=== PATIENT | female | born 1945 | race Caucasian/White ===

== ENCOUNTER 2016-06-29 15:10 | Observation (INO) | payer MEDICARE, OTHER ==
[~2016-06-29] VITALS: Ht 154.9 cm; Wt 75.9 kg
[2016-07-03] MEDS ORDERED: POTA99TA PO (13:28)
[2016-07-03] MEDS ORDERED: MAGN500T4 PO (13:28)
[2016-07-03] MEDS ORDERED: VITA200013 (13:28)
[2016-07-03] MEDS ORDERED: METF1000 PO (13:28)
[2016-07-03] MEDS ORDERED: SYMB80AE INH (13:28)
[2016-07-03] MEDS ORDERED: GABA600T PO (13:28)
[2016-07-03] MEDS ORDERED: ROSU10 PO (13:28)
[2016-07-03] MEDS ORDERED: VALS80TA2 PO (13:28)
[2016-07-03] MEDS ORDERED: COQ-100C2 PO (13:28)
[2016-07-03] MEDS ORDERED: LANTUS2P SQ (13:28)
[2016-07-03] MEDS ORDERED: ALBUAER3 INH (13:28)
[2016-07-03] MEDS ORDERED: MONT10TA2 PO (13:28)
[2016-07-03] MEDS ORDERED: MORP1TAB24 PO (13:28)
[2016-07-03] MEDS ORDERED: DIAZ5TAB PO (13:28)
[2016-07-03] MEDS ORDERED: NOVOLOGP2 SQ (13:28)
[2016-07-19] MEDS ORDERED: CHLORHEXIDINE GLUCONATE 4% SOLN 120 ML BTL TOPICAL SCH (06:45)
[2016-07-19] MEDS ORDERED: ceFAZolin 2 GM PREMIX 50 ML IV SCH (06:45)
[2016-07-19] MEDS ORDERED: VANCOMYCIN 1000 MG/NS 250 ML (for <70 kg) IV SCH ×2 (06:45)
[2016-07-19] MEDS ORDERED: DEXTROSE 50% IN WATER 50 ML SYRINGE ONE (06:56)
[2016-07-19] MEDS ORDERED: SODIUM CHLORID 0.9% 500 ML IV PRN (07:00)
[2016-07-19] MEDS ORDERED: DEXTROSE 50% IN WATER 50 ML VIAL(D50) IV ONE (07:00)
[2016-07-19] MEDS ORDERED: POVIDONE IODINE 5% (ANTISEPSIS KIT) 4 APPLICATIONS EACH NARE PRN (07:00)
[2016-07-19] MEDS ORDERED: LACTATED RINGER'S 1000 ML IV PRN (07:00)
[2016-07-19] MEDS ORDERED: INSULIN HUMAN REGULAR 1,000 UNITS/10 ML VIAL SQ PRN (07:00)
[2016-07-19] MEDS ORDERED: CHLORHEXIDINE GLUCONATE 2 % 1 PACK (2 CLOTHS) TOPICAL PRN (07:00)
[2016-07-19] MEDS ORDERED: METOPROLOL TARTRATE 25 MG TAB PO PRN (07:00)
[2016-07-19] MEDS ORDERED: BUPIVACAINE/EPINEPHRINE 0.5% PF 30 ML VIAL ONE (07:15)
[2016-07-19] MEDS ORDERED: GENTAMICIN SULFATE 80 MG/2 ML VIAL ONE (07:15)
[2016-07-19] MEDS ORDERED: UBID200C3 PO (07:27)
[2016-07-19] MEDS ORDERED: ESSE250T PO (07:27)
[2016-07-19 07:30] VITALS: BP 152/72; PULSE 67; RESP 22; TEMP 98.9; O2SAT 97
[2016-07-19] MEDS ORDERED: FAMOTIDINE 20 MG/2 ML VIAL ONE (08:19)
[2016-07-19] MEDS ORDERED: ACETAMINOPHEN 1000 MG/100 ML VIAL IV ONE (08:26)
[2016-07-19] MEDS ORDERED: ALBUTEROL SULFATE 90 MCG/ACT HFA 18 GM INHALER INH PRN (12:15)
[2016-07-19] MEDS ORDERED: DIAZEPAM 5 MG TAB PO PRN (12:15)
--- NOTE | 2016-07-19 12:29 | HHI.PR ---
Immediate Post Op Note Procedure Date: Jul 19, 2016 Pre Op Diagnosis: C4-C6 ODC SS,SCC,DD,OA,James Cervical Radiculitis Post Op Diagnosis: Same Surgeon: Jacques Villarreal MD Medical Language Specialist(s): Geneva Villalobos PA-C Procedure: C4-5,C5-6 AIF,ACC,ASI Complications: None Estimated blood loss: 150 cc for entire case Anesthesia: General Drains: None Patient to: PACU Patient Condition: Good Implant/Devices: SEE IMPLANT LOG (if applicable) Date/Time of Procedure: SEE SURGICAL CARE RECORD Jacques Villarreal MD Jul 19, 2016 12:29
[2016-07-19] MEDS ORDERED: Post-op Orders (for Pharmacy) MISC XX ONE (12:30)
[2016-07-19] MEDS ORDERED: DO NOT ADM ANY ANTICOAGULANT DRUGS PRN (12:30)
[2016-07-19] MEDS ORDERED: NALOXONE HCL 0.4 MG/ML AMP IV PRN (12:30)
[2016-07-19] MEDS ORDERED: ACETAMINOPHEN/HYDROcodone 325 MG/7.5 MG TAB PO PRN (12:30)
[2016-07-19] MEDS ORDERED: ONDANSETRON HCL 4 MG/2 ML VIAL IV PRN (12:30)
[2016-07-19] MEDS ORDERED: ALUMINUM/MAGNESIUM/SIMETH 30 ML CUP PO PRN (12:30)
[2016-07-19] MEDS ORDERED: SODIUM CHLORIDE 0.9% FLUSH 5 ML FLUSH IVF PRN (12:30)
[2016-07-19] MEDS ORDERED: fentaNYL CITRATE 250 MCG/5 ML AMP ONE (12:39)
[2016-07-19] MEDS ORDERED: MIDAZOLAM HCL 2 MG/2 ML VIAL ONE (12:40)
--- NOTE | 2016-07-19 12:41 | PD.OP ---
cc: Jacques Villarreal MD; Dmitri Villarreal MD Operative Report Osteophyte disc complex C4 5 and C5 6. Cervical spinal stenosis. Cervical radiculopathy Postoperative Diagnosis: Same Procedure: Anterior cervical discectomy with decompression and bilateral foraminotomies, C4 5. Anterior cervical discectomy and decompression with bilateral foraminotomy, C5 6. Left anterior iliac crest bone graft Anesthesia: Gen. Surgeon: Dmitri Villarreal Medical Liaison(s): JOSE Thompson Operation and Findings: EBL: 100 cc INDICATIONS: This patient is a 71-year-old female with significant left arm pain with weakness. Studies show evidence of a high-grade stenosis at C4 5 and C5 6. Discogenic changes are seen. Foraminal stenosis is noted. This patient presents for surgical treatment. NOTE: Alison Thompson PA-C was present for the entire surgical procedure as my assistant professor of psychology. In my medical opinion her skill and care was necessary for proper management of this patient PROCEDURE: The patient was brought to the operating room and anesthetized in the supine position. This patient was positioned supine on the radiolucent table. All pressure points were protected in the anterior cervical spine and iliac crest was scrubbed with alcohol followed by Hibiclens followed by ChloraPrep. A timeout was done and antibiotics were given within 1 hour time window. Lateral radiographic images were used identifying the proper level. A right anterior incision was made in line with skin creases. The platysma was opened in line with the incision. Deep dissection continued in the interval between the carotid sheath and the esophagus. The longus-coli muscles were lifted on both sides and retractors were positioned allowing good exposure. Lateral radiographic images were used to identify the proper level. [place] style interosseous pins were placed at C4 and C5 allowing exposure to that level. The microscope was rolled into the field. A total discectomy was accomplished and posterior osteophytes were removed. The posterior longitudinal ligament and annulus was taken down. Bilateral foraminotomies were accomplished. The endplates were squared up anticipating later bone grafting. A blunt probe could be placed out each foramen without evidence of nerve root compromise. The C4 pin was placed down to C6. An anterior exposure was accomplished. We performed a total discectomy with excision of the posterior annulus and posterior longitudinal ligament. Bilateral foraminotomies were accomplished. Osteophytes were removed. The endplates were squared up anticipating later bone grafting. A blunt probe could be placed out each foramen without evidence of nerve root compromise. The left iliac crest was approached. A small stab incision was made allowing percutaneous access to the anterior iliac crest. Multiple cores of cancellous bone were harvested and taken to the back table to be used for later bone grafting. The wound was irrigated anesthetized and closed with 4-0 Vicryl followed by Dermabond. The case was turned over to Dr. Jacques Villarreal for fusion and instrumentation per his dictation. FINDINGS: There was a high-grade central and foraminal stenosis seen at both levels. 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 Some element of soft disc herniation on top of that was seen at both levels centrally. No complication was noted. NOTE: This surgery was performed in 2 parts. The first part was the neurosurgical decompression performed under the variable power stereo microscope by the undersigned in addition to the bone graft. The second portion of the surgery will be performed by the orthopedic spine component by co -surgeon, Dr. Jacques Villarreal for the anterior fusion with interbody cage and anterior plate. The skill of 2 surgeons was necessary to perform distinct separate procedural services as dictated above and dictated in the following operative note by Dr. Jacques Villarreal. Dmitri Villarreal MD Jul 19, 2016 12:41
[2016-07-19] MEDS ORDERED: *morphine SULFATE 8 MG/ML PERIprocedure ONLY ONE ×2 (12:47→13:06)
[2016-07-19] MEDS: INSULIN ASPART 1,000 UNITS/10 ML VIAL SQ SCH ×3 (13:00→21:30)
[2016-07-19] MEDS ORDERED: *HYDROmorphone PF 1 MG VIAL PERIprocedural Use ONLY ONE (13:27)
[2016-07-19] MEDS: LACTATED RINGER'S 1000 ML INJ 1,000 ML IV SCH (13:30)
[2016-07-19 14:00] VITALS: BP 112/60; PULSE 66; RESP 18; TEMP 96.2; O2SAT 100
[2016-07-19] MEDS ORDERED: MORPHINE SULFATE 15 MG CONTROLLED RELEASE TAB PO SCH ×2 (14:00→21:00)
[2016-07-19] MEDS: GABAPENTIN 300 MG CAP PO SCH ×2 (14:18→18:32)
[2016-07-19] MEDS ORDERED: ePHEDrine/NS 25 MG/5 ML SYR IV ONE (14:47)
[2016-07-19] MEDS ORDERED: ONDANSETRON HCL 4 MG/2 ML VIAL IV PUSH ONE (14:47)
[2016-07-19] MEDS ORDERED: NEOSTIGMINE 3 MG/3 ML SYR IV ONE (14:47)
[2016-07-19] MEDS ORDERED: PROPOFOL 200 MG/20 ML AMP IV ONE (14:47)
[2016-07-19] MEDS ORDERED: LACTATED RINGER'S 1000 ML INJ 1,000 ML IV ONE (14:48)
[2016-07-19] MEDS ORDERED: RESP: ALBUTEROL 2.5 MG/IPRATROPIUM 0.5 MG NEB (PRN) NEB (15:00)
[2016-07-19] MEDS ORDERED: DEXTROSE 50% IN WATER 50 ML VIAL(D50) IV PRN (15:00)
[2016-07-19] MEDS ORDERED: GLUCAGON 1 MG/ML VIAL OTHER PRN (15:00)
--- NOTE | 2016-07-19 15:07 | PD.CONS ---
HPI Service [facility] Consult Requested By Orthopedic surgery Reason for Consult Medical management Primary Care Physician Gavin Mcqueen Diagnoses: History of Present Illness 71-year-old female with a history of diabetes type 2, hypertension, hyperlipidemia and diagnosis of high-grade stenosis at C4-5 and C5-6 causing significant left arm pain with weakness and neck pain times several years duration was taken to the OR today and underwent ACDF by orthopedic surgery. [facility] was consulted for medical management. Patient was seen and complains of weakness to her right arm otherwise stable she denies any chest pain or shortness of breath. Review of Systems Except as stated in HPI: all other systems reviewed are Neg Past Family Social History Allergies: Coded Allergies: Codeine (Verified Adverse Reaction, Severe, VOMITING, 07/19/16) causes swelling,itching and hives Past Medical History Diabetes type 2 Hypertension Hyperlipidemia COPD Anxiety Past Surgical History Status post ACDF Back surgery Total Abdominal hysterectomy Right knee replacement Reported Medications See EMR Family History Noncontributory Social History Patient denies tobacco, alcohol or easy drug intake Physical Exam Vital Signs Vital Signs Date Time Temp Pulse Resp B/P Pulse Ox O2 Delivery O2 Flow Rate FiO2 07/19/16 14:00 96.2 66 18 112/60 100 07/19/16 13:45 97.5 70 16 124/55 98 Nasal Cannula 3 07/19/16 13:30 71 16 125/56 97 Nasal Cannula 3 07/19/16 13:15 72 15 117/57 96 Nasal Cannula 3 07/19/16 13:11 15 07/19/16 13:00 77 15 141/70 95 Nasal Cannula 3 07/19/16 12:52 15 07/19/16 12:45 82 14 133/73 99 Simple Mask 8 07/19/16 12:30 97.5 98 15 155/76 96 Simple Mask 8 07/19/16 07:30 98.9 67 22 152/72 97 Physical Exam GENERAL: This is a well-nourished, well-developed patient, in no apparent distress. SKIN: No rashes, ecchymoses or lesions. Cool and dry. HEAD: Atraumatic. Normocephalic. No temporal or scalp tenderness. EYES: Pupils equal round and reactive. Extraocular motions intact. No scleral icterus. No injection or drainage. ENT: Nose without bleeding, purulent drainage or septal hematoma. Throat without erythema, tonsillar hypertrophy or exudate. Uvula midline. Airway patent. NECK: Trachea midline. No JVD or lymphadenopathy. Supple, nontender, no meningeal signs. [place] neck collar in place CARDIOVASCULAR: Regular rate and rhythm without murmurs, gallops, or rubs. RESPIRATORY: Clear to auscultation. Breath sounds equal bilaterally. No wheezes , rales, or rhonchi. GASTROINTESTINAL: Abdomen soft, non-tender, nondistended. No hepato-splenomegaly , or palpable masses. No guarding. MUSCULOSKELETAL: Extremities without clubbing, cyanosis, or edema. No joint tenderness, effusion, or edema noted. No calf tenderness. Negative Homans sign bilaterally. NEUROLOGICAL: Awake and alert. Cranial nerves II through XII intact. Motor and sensory grossly within normal limits. Five out of 5 muscle strength in all muscle groups. Normal speech. Assessment and Plan Assessment and Plan 71-year-old female with High-grade stenosis at C4-5 and C5-6 with left arm radiculopathy Status post ACDF and management per orthopedic surgery Continue current postop care including postop antibiotics, parenteral pain management, incentive spirometry at bedside. Continue with [place] neck collar PT consult to treat and eval History of diabetes type 2 Resume long-acting basal insulin, and start insulin sliding scale with fingerstick blood glucose monitoring Hypertension, hyperlipidemia Resume outpatient medications COPD: No exacerbation, DuoNeb when necessary and resume outpatient medication. DVT prophylaxis: Bilateral SCDs Thank you for this consultation Code Status Full code Discussed Condition With Patient Max Espinosa MD Jul 19, 2016 15:07
[2016-07-19 16:00] VITALS: BP 127/63; PULSE 68; RESP 18; TEMP 96.2; O2SAT 100
[2016-07-19] MEDS: INSULIN ASPART SUPPLEMENTAL SCALE SQ SCH ×2 (16:00→21:31)
[2016-07-19] MEDS: ACETAMINOPHEN/HYDROcodone 325 MG/7.5 MG TAB PO PRN ×2 (16:23→20:29)
--- NOTE | 2016-07-19 17:10 | RADRPT ---
EXAM DATE/TIME: 07/19/2016 11:48 [place] COMPARISON: No previous studies available for comparison. INDICATIONS : Fusion C4,C5 and C5,C6 with screw and plate placement., MEDICAL HISTORY : None. SURGICAL HISTORY : None. ENCOUNTER: Initial ACUITY: 1 day PAIN SCORE: Non-responsive. LOCATION: Cervical spine. FINDINGS: 3 images of the cervical region are recorded digitally in the operating room using C-arm during place ment of a 3 level anterior cervical plate. CONCLUSION: Intraoperative images. Benjamin Musa MD on July 19, 2016 at 17:08 Board Certified Radiologist. This report was verified electronically.
[2016-07-19 20:10] VITALS: BP 121/66; PULSE 66; RESP 17; TEMP 97.3; O2SAT 97
[2016-07-19] MEDS: SODIUM CHLORIDE 0.9% FLUSH 5 ML FLUSH IVF SCH (20:42)
[2016-07-19] MEDS ORDERED: MONTELUKAST SODIUM 10 MG TAB PO SCH (21:00)
[2016-07-19] MEDS ORDERED: ZOLPIDEM TARTRATE 5 MG TAB PO PRN (21:00)
--- NOTE | 2016-07-19 21:18 | MP ---
cc: NILES VILLARREAL STANLEY D.O. (Dr. Mcqueen - [phone]) DATE OF SURGERY 07/19/16 PREOPERATIVE DIAGNOSIS 1. C4-5, C5-6 osteophyte disk complex, spinal stenosis, spinal cord compression, bilateral foraminal stenosis. 2. Cervical spine degenerative disk osteoarthritis. 3. Bilateral cervical radiculitis with bilateral upper extremity weakness. POSTOPERATIVE DIAGNOSIS 1. C4-5, C5-6 osteophyte disk complex, spinal stenosis, spinal cord compression, bilateral foraminal stenosis. 2. Cervical spine degenerative disk osteoarthritis. 3. Bilateral cervical radiculitis with bilateral upper extremity weakness. PROCEDURE C4-5, C5-6 anterior body fusion, C4-5, C5-6 spinet ACC anterior cervical cage, C4-C6 anterior spinal instrumentation spinet Rauscher anterior spinal instrumentation SURGEON Usha Villarreal MD CHANGE MANAGEMENT MANAGER SALINA Long ANESTHESIA General. ESTIMATED BLOOD LOSS 150 mL for entire case. CONDITION Stable PLAN OF ACTIVITY As per orders. PROCEDURE IN DETAIL Dr. Dmitri Villarreal and myself were co-surgeons. Dr. Dmitri Villarreal performed anterior cervical spine exposure with C4-5, C5-6 anterior cervical diskectomy, anterior decompression using operative microscope and also performed left iliac crest bone grafting. I was not present for his portion of the procedure. I then performed the orthopedic fusion and stabilization portion of the procedure which is well described in my operative note. My certified medical assistant, SALINA Simmons, was present for my portion of the surgical case. She was medically necessary because of the complexity pf the case and to facilitate the performance of the procedure. The CANDY DECORATOR at back table is not a skill set for this case to manipulate the instruments e.g. the multiple different soft tissue tractors, trial implants and permanent implants with the bone grafting and fusion. The endplates at C5-6 were prepared for fusion. Hyaline cartilage endplates removed using angled curettes and burs. A 5 10x12 ACC cage placed in interspace. Anterior iliac crest autogenous bone graft was placed under fluoroscopic guidance for interbody fusion. The endplates at C4-5 were prepared for fusion. Hyaline cartilage endplates were removed using angled curettes and burs. A 5 10x12 ACC cage was placed in interspace. Anterior crest bone grafting was used in interbody fusion. The anterior osteophytes were removed using multiple different types of rongeurs and a bur. A 37 mm spinet Rauscher plate was contoured for appropriate cervical lordosis. Two tack pins were used to hold the plate in satisfactory position which was confirmed on fluoroscopic guidance. Two screws were used in the vertebral body of C4, C5 and C6. Each of the screws were drilled and tapped and 14 mm length screws, 4.0 mm diameter fixed angle screws were inserted. Each screw has appropriate lock to the plate. This was done all under fluoroscopic guidance. The. wound was irrigated with copious amounts of sterile saline. The wound itself was dry. The wound was closed in a routine manner in multiple layers using 3-0 Vicryl suture. Skin approximated with running subcuticular 4-0 Vicryl suture. Sterile dressings were applied. The patient was placed in a [place] cervical orthosis. Fluoroscopy at the end of the case showed the patient had satisfactory bone graft at C4-5 and C5-6, satisfactory position of ACC cages at C4-5 and C5-6 and satisfactory position of anterior spinal instrumentation of C4-C6. The patient tolerated the procedure well and went to recovery room in stable and satisfactory condition. MD ALETA Pinto/ /12:19 PM /8:51 PM
[2016-07-19] MEDS: MORPHINE SULFATE 15 MG CONTROLLED RELEASE TAB PO SCH (21:21)
[2016-07-19] MEDS: BUDESONIDE-FORMOTEROL 80/4.5 MCG INHALER INH SCH (21:33)
[2016-07-20 00:10] VITALS: BP 111/54; PULSE 72; RESP 17; TEMP 97.4; O2SAT 100
[2016-07-20] MEDS: LACTATED RINGER'S 1000 ML INJ 1,000 ML IV SCH ×2 (00:55→13:51)
[2016-07-20] MEDS: MORPHINE SULFATE 15 MG CONTROLLED RELEASE TAB PO SCH ×4 (01:15→13:52)
[2016-07-20 04:10] VITALS: BP 121/58; PULSE 72; RESP 17; TEMP 97.7; O2SAT 100
[2016-07-20] MEDS: INSULIN ASPART SUPPLEMENTAL SCALE SQ SCH ×2 (06:16→11:49)
[2016-07-20 07:00] LABS: AUTOMATED NEUTROPHIL # 2.9 TH/MM3 (1.8-7.7); BASOPHIL % 0.4 % (0.0-2.0); EOSINOPHIL # 0.3 TH/MM3 (0-0.4); HEMATOCRIT 31.7 % (35.0-46.0); HEMO FLAGS DIFF FINAL; LYMPH % 29.4 % (9.0-44.0); LYMPHOCYTE # 1.6 TH/MM3 (1.0-4.8); MEAN CELL VOLUME 84.2 FL (80.0-100.0); MEAN CORPUSCULAR HEMOGLOBIN 28.4 PG (27.0-34.0); MEAN CORPUSCULAR HGB CONC 33.7 % (32.0-36.0); MONO % 12.6 % (0.0-8.0); NEUT % 51.6 % (16.0-70.0); PLATELET COUNT 151 TH/MM3 (150-450); RED BLOOD COUNT 3.76 MIL/MM3 (4.00-5.30); RED CELL DISTRIBUTION WIDTH 12.1 % (11.6-17.2); WHITE BLOOD COUNT 5.6 TH/MM3 (4.0-11.0)
--- NOTE | 2016-07-20 07:20 | PD.ORT.PN ---
Subjective Subjective Remarks complaining of post op neck pain Objective Vitals Vital Signs Date Time Temp Pulse Resp B/P Pulse Ox O2 Delivery O2 Flow Rate FiO2 07/20/16 04:10 97.7 72 17 121/58 100 07/20/16 00:10 97.4 72 17 111/54 100 07/19/16 21:30 16 07/19/16 20:10 97.3 66 17 121/66 97 07/19/16 16:00 96.2 68 18 127/63 100 07/19/16 14:00 96.2 66 18 112/60 100 07/19/16 13:45 97.5 70 16 124/55 98 Nasal Cannula 3 07/19/16 13:30 71 16 125/56 97 Nasal Cannula 3 07/19/16 13:15 72 15 117/57 96 Nasal Cannula 3 07/19/16 13:11 15 07/19/16 13:00 77 15 141/70 95 Nasal Cannula 3 07/19/16 12:52 15 07/19/16 12:45 82 14 133/73 99 Simple Mask 8 07/19/16 12:30 97.5 98 15 155/76 96 Simple Mask 8 07/19/16 07:30 98.9 67 22 152/72 97 I/O 07/19/16 07/19/16 07/19/16 07/20/16 07/20/16 07/20/16 07:00 15:00 23:00 07:00 15:00 23:00 Intake Total 900 ml 720 ml 360 ml Output Total 950 ml 450 ml 2250 ml Balance -50 ml 270 ml -1890 ml Intake Oral 720 ml 360 ml IV Total 100 ml Other 800 ml Output Urine Total 800 ml 450 ml 2250 ml Estimated Blood Loss 150 ml # Bowel Movements 0 0 Objective Remarks seen by Dr. Jacques Villarreal [place] collar in place neck dressing dry and intact patient exhibited good strength in bilateral upper extremities, neg astudillo's, neg babinski Assessment & Plan Assessment and Plan POD # 1 s/p C4-6 ACDF OOB to chair this morning [place] collar x 4 weeks not prescribing any narcotics for discharge; patient states that she is MS Contin QID pre-operatively, [facility] neurology is prescribing discharge today, orthopedically stable Geneva Villalobos Jul 20, 2016 07:20
[2016-07-20 07:38] LABS: BICARBONATE 34.1 MEQ/L (21.0-32.0)
[2016-07-20 08:00] VITALS: BP 132/63; PULSE 85; RESP 16; TEMP 97.7; O2SAT 99
[2016-07-20] MEDS ORDERED: NON-FORMULARY DRUG (Valsartan-Hydrochlorothiazide 1 TAB) PO SCH (09:00)
[2016-07-20] MEDS ORDERED: HYDROCHLOROTHIAZIDE 12.5 MG CAP PO SCH (09:00)
[2016-07-20] MEDS ORDERED: VALSARTAN 80 MG TAB PO SCH (09:00)
[2016-07-20] MEDS ORDERED: ATORVASTATIN 20 MG TAB PO SCH (09:00)
[2016-07-20] MEDS: GABAPENTIN 300 MG CAP PO SCH ×2 (09:00→12:40)
[2016-07-20] MEDS ORDERED: MULTIVITAMINS/MINERALS THERAPEUTIC TAB PO SCH (09:00)
[2016-07-20] MEDS: INSULIN ASPART 1,000 UNITS/10 ML VIAL SQ SCH ×2 (09:01→13:51)
[2016-07-20] MEDS: BUDESONIDE-FORMOTEROL 80/4.5 MCG INHALER INH SCH (09:02)
[2016-07-20] MEDS: SODIUM CHLORIDE 0.9% FLUSH 5 ML FLUSH IVF SCH (09:02)
--- NOTE | 2016-07-20 09:31 | HHI.PR ---
Subjective Remarks Patient seen and examined She was in TEARS stating she couldn't lift her right hand however patient is able to flip it. She also complains of pain to that right upper extremity. Afebrile Objective Vitals Vital Signs Date Time Temp Pulse Resp B/P Pulse Ox O2 Delivery O2 Flow Rate FiO2 07/20/16 08:00 97.7 85 16 132/63 99 07/20/16 04:10 97.7 72 17 121/58 100 07/20/16 00:10 97.4 72 17 111/54 100 07/19/16 21:30 16 07/19/16 20:10 97.3 66 17 121/66 97 07/19/16 16:00 96.2 68 18 127/63 100 07/19/16 14:00 96.2 66 18 112/60 100 07/19/16 13:45 97.5 70 16 124/55 98 Nasal Cannula 3 07/19/16 13:30 71 16 125/56 97 Nasal Cannula 3 07/19/16 13:15 72 15 117/57 96 Nasal Cannula 3 07/19/16 13:11 15 07/19/16 13:00 77 15 141/70 95 Nasal Cannula 3 07/19/16 12:52 15 07/19/16 12:45 82 14 133/73 99 Simple Mask 8 07/19/16 12:30 97.5 98 15 155/76 96 Simple Mask 8 I/O 07/19/16 07/19/16 07/19/16 07/20/16 07/20/16 07/20/16 07:00 15:00 23:00 07:00 15:00 23:00 Intake Total 900 ml 720 ml 360 ml Output Total 950 ml 450 ml 2250 ml Balance -50 ml 270 ml -1890 ml Intake Oral 720 ml 360 ml IV Total 100 ml Other 800 ml Output Urine Total 800 ml 450 ml 2250 ml Estimated Blood Loss 150 ml # Bowel Movements 0 0 Result Diagram: 07/20/1661807/20/16618 Imaging Last Impressions Cervical Spine X-Ray 07/19/16 0000 Signed Impressions: Service Date/Time: July 11:48 - CONCLUSION: Intraoperative images. Benjamin Musa MD Objective Remarks GENERAL: NAD with neck collar in place SKIN: Warm and dry. HEAD: Normocephalic. EYES: No scleral icterus. No injection or drainage. NECK: Supple, trachea midline. No JVD or lymphadenopathy. CARDIOVASCULAR: Regular rate and rhythm with II/ [place] RESPIRATORY: Breath sounds equal bilaterally. No accessory muscle use. GASTROINTESTINAL: Abdomen soft, non-tender, nondistended. MUSCULOSKELETAL: No cyanosis, or edema. BACK: Nontender without obvious deformity. No CVA tenderness. A/P Assessment and Plan 71-year-old female with High-grade stenosis at C4-5 and C5-6 with left arm radiculopathy Status post ACDF and management per orthopedic surgery Continue current postop care including parenteral pain management, incentive spirometry at bedside. Continue with [place] neck collar PTto treat and eval History of diabetes type 2 Continue long-acting basal insulin, and insulin sliding scale with fingerstick blood glucose monitoring Hypertension, hyperlipidemia Continue outpatient medications COPD: No exacerbation, DuoNeb when necessary and outpatient medication. DVT prophylaxis: Bilateral SCDs Max Espinosa MD Jul 20, 2016 09:30
[2016-07-20 11:58] VITALS: BP 132/60; PULSE 95; RESP 20; TEMP 98.1; O2SAT 94
== END 2016-07-20 19:23 | disposition home or self-care (01) ==
LOC: INTOOBSV 07-19 06:26 → HSDI 07-19 06:26 → EDSEX 07-19 06:26 → N06B 07-19 13:58
PROVIDERS: ADMIT Orthopaedic Surgery Orthopaedic Surgery of the Spine; ATTEND Orthopaedic Surgery Orthopaedic Surgery of the Spine
DX: M48.02 Spinal stenosis, cervical region (principal); M50.121 Cervical disc disorder at C4-C5 level with radiculopathy; M50.122 Cervical disc disorder at C5-C6 level with radiculopathy; M25.78 Osteophyte, vertebrae; E78.5 Hyperlipidemia, unspecified; E11.22 Type 2 diabetes mellitus with diabetic chronic kidney disease; J44.9 Chronic obstructive pulmonary disease, unspecified; M47.22 Other spondylosis with radiculopathy, cervical region; I12.9 Hypertensive chronic kidney disease with stage 1 through stage 4 chronic kidney disease, or unspecified chronic kidney disease; N18.9 Chronic kidney disease, unspecified; Z96.651 Presence of right artificial knee joint; Z88.5 Allergy status to narcotic agent
CPT/HCPCS: 00600; 20937; 22551; 22552; 22853; 72040; 76000; 80048; 82948; 85025; 94150; 96365; 96372; 96376; 97162; C1713; G0378; G8987; G8988; J0131; J0690; J1170; J1580; J1815; J2250; J2270; J2405; J2710; J3010; J3370; J7050; J7120

== ENCOUNTER → 2016-07-03 | Outpatient (CLI) | payer MEDICARE, OTHER ==
[~2016-07-03] MED LIST: ALBU1AER INH; ALBUAER3 INH; AMBI10TA PO; COQ-100C2 PO; DIAZ5TAB PO; DIOV40TA PO; ESSE250T PO; GABA600T PO; LANTUS2P SQ; LANTUSP SQ; MAGN500T4 PO; METF-324 PO; METF1000 PO; MONT10TA2 PO; MORP1TAB24 PO; NEUR600T PO; NOVOLOGP2 SQ; POTA99TA PO; ROSU10 PO; SYMB80AE INH; TRAM50 PO; UBID200C3 PO; VALS80TA2 PO; VITA200013
[2016-07-03 10:30] LABS: AUTOMATED NEUTROPHIL # 3.2 TH/MM3 (1.8-7.7); BASOPHIL % 0.6 % (0.0-2.0); EOSINOPHIL # 0.3 TH/MM3 (0-0.4); EOSINOPHIL % 4.3 % (0.0-4.0); HEMATOCRIT 37.6 % (39.0-51.0); HEMO FLAGS DIFF FINAL; LYMPHOCYTE # 2.4 TH/MM3 (1.0-4.8); MEAN CELL VOLUME 83.6 FL (80.0-100.0); MEAN CORPUSCULAR HGB CONC 33.4 % (32.0-36.0); MONO % 8.5 % (0.0-8.0); NEUT % 49.6 % (16.0-70.0); PLATELET COUNT 237 TH/MM3 (150-450); RED CELL DISTRIBUTION WIDTH 12.2 % (11.6-17.2); WHITE BLOOD COUNT 6.5 TH/MM3 (4.0-11.0)
[2016-07-03 10:31] LABS: POTASSIUM 4.3 MEQ/L (3.5-5.1)
--- NOTE | 2016-07-03 20:10 | EKG ---
Date Performed: 07/03/2016 Time Performed: 09:45:56 PTAGE: 70 years EKG: Sinus rhythm NORMAL ECG Compared to prior tracing no significant change DOCTOR: Nakia Bergeron Interpretating Date/Time 07/03/2016 20:09:06
== END ==
LOC: EDSEX → CPRE 09:27
PROVIDERS: ATTEND Orthopaedic Surgery Orthopaedic Surgery of the Spine
DX: Z01.810 Encounter for preprocedural cardiovascular examination (principal); Z01.812 Encounter for preprocedural laboratory examination; M48.02 Spinal stenosis, cervical region; M50.30 Other cervical disc degeneration, unspecified cervical region
CPT/HCPCS: 36415; 80048; 85025; 93005